=== PATIENT | female | born 1935 | race Caucasian/White ===

== ENCOUNTER 2016-08-22 00:31 | Inpatient (IN) | payer MEDICARE, OTHER ==
[~2016-08-22] VITALS: Ht 165.1 cm; Wt 107.8 kg
[2016-08-22] VITALS (18 sets, daily range): BP systolic 103–161; BP diastolic 63–104; PULSE 57–118; RESP 14–18; O2SAT 92–100
[~2016-08-22 00:31] MED LIST: BUPR150T12 PO; CHOL10008 PO; COLE1TAB PO; FURO40TA4 PO; MAGN400T23 PO; METO50TA3 PO; OMEP20CA11 PO; POTA10TA7 PO; RIVA20TA PO; SERT50TA9 PO; TELM80TA PO; VERA240C PO
[2016-08-22] MEDS ORDERED: FLUT1BLS IH (03:47)
[2016-08-22] MEDS ORDERED: UMEC62.5 IH (03:47)
[2016-08-22] MEDS ORDERED: Polyethylene Glycol (PEG) 17 Gm Powder PO PRN (03:55)
[2016-08-22] MEDS ORDERED: Alum-Mag Hydrox-Simeth 30 mL Suspension PO PRN (03:55)
[2016-08-22] MEDS ORDERED: Ondansetron 2 mg/mL 2 mL Inj IVPUSH PRN (03:55)
[2016-08-22] MEDS ORDERED: Pantoprazole Inj 80 MG, Pharmacy To Mix 1 EA in 0.9% Sodium Chloride 80 ML IV SCH ×2 (04:00)
--- NOTE | 2016-08-22 04:48 | PCM.HPMED ---
Subjective Date of Service Aug 22, 2016 Primary Provider: Admitting Physician: Claudia Simms DO Primary Care Physician: Claudia Bowen PA-C Attending Physician: Claudia Simms DO Admit Status: Direct Admit (from [facility]) Chief Complaint: Generalized weakness, dizziness, shortness of breath worsened by exertion for the past week History of Present Illness: This is a pleasant 80-year-old female with past history of paroxysmal atrial fibrillation on antiplatelet therapy Xarelto, as well as history of BIMAL, CHF, COPD, and GERD who presented to [facility] secondary to having developed generalized weakness, dizziness/lightheadedness and shortness of breath over the past week that worsened today prompting patient to call 911. At [facility] ED patient was found to be in A. fib, with a critically low H/ H. Associated symptoms include nausea, dark tarry stools for the past week. Patient denies any prior history of blood in stool to her knowledge, denies NSAID use, 2 IVs were placed and patient was started on Protonix drip, and patient received a single unit of packed RBCs. Dr. Lombardo was consulted by phone who will be seeing patient for endoscopy secondary to GI bleed. Patient was transferred to [facility] secondary to lack of procedural space ( operating room under construction) at [facility]. At [facility] patient reported feeling improved after having received her 1 unit of packed red blood cells. And states that her shortness of breath is much improved. Patient denied chest pain, fever, vomiting, abdominal pain, constipation, cough, syncope, falls. In the ED at [facility]: Vital signs were temperature 36.3, heart rate 73, respiratory rate 16-19, blood pressure 97/66, 99% on room air Hemogram: Significant for white blood cell count 11.8, hemoglobin 6.4, hematocrit 20.7, MCV 75.7, MCH 23.6, MCHC 31.1, platelet count 272 nucleated RBCs 0.2, absolute nucleated RBCs 0.02 and platelet count 272 Chemistry panel: Sodium low at 133, potassium elevated 5.2, chloride 102, BUN 32 , creatinine 0.9, glucose 126, troponin I less than 0.04 Normal anion gap 8.0 BNP was elevated at 246 Blood Type A+ antibody screen negative UA was negative EKG: Rate of 61, rhythm is atrial fibrillation, axis anterior hemiblock, right bundle branch block, rate has decreased from previous EKG on 04/10/2015 otherwise no changes. Chest x-ray moderate cardiomegaly, chronic lung disease Review of Systems: A comprehensive review of systems was conducted and was negative except as mentioned in history of present illness. Allergies Coded Allergies: No Known Allergies (Unverified , 09/13/15) Home Medications Bupropion HCl 150 mg by mouth daily Telmisartan [Micardis) Verapamil HCl ER 240 mg by mouth daily Vitamin D3 1mg by mouth daily Colestipol 1 g daily Ellipta 1 g inhaled daily Fluticasone/Vilanterol 1 mg inhaled daily Furosemide 80 mg daily Magnesium oxide 400 mg daily Metoprolol tartrate Omeprazole Potassium chloride Xarelto Sertraline PMH Paroxysmal atrial fibrillation, currently on antiplatelet therapies Xarelto Hypertension COPD CHF Obstructive sleep apnea, and has her own home CPAP mask with her Depression anxiety Chronic diarrhea GERD Diverticulitis Surgical History Cholecystectomy Partial colectomy secondary to perforated diverticulitis, with colostomy and then reversal Abdominal hernia repair Partial vaginal hysterectomy Family History Maternal uncle with leukemia and history of melanoma Social History Hx Alcohol Use: No Hx Substance Use: No Smoking Status: Former Smoker Living Arrangement: with Family (patient lives in a duplex next to her daughter.) Exam Vital Signs Vital Sign - Last Date Time Temp Pulse Resp B/P Pulse Ox O2 Delivery O2 Flow Rate FiO2 08/22/16 03:15 21 08/22/16 03:07 94 Exam General: Patient is alert and oriented, resting comfortably in bed, wearing a CPAP mask, in no acute distress, speaking in full sentences, patient states she feels less short of breath after having received her blood transfusion. HEENT: NC/AT, eyes Anisocoria with right smaller than left pupil, pupils reactive to light bilaterally, pupils accommodate, EOMI, pale conjunctiva, neck soft, supple, no adenopathy, no JVD, no masses, no thyromegaly, throat mucous membranes pink and moist, edentulous, no erythema, no exudates, no tonsillar swelling, no uvular deviation. Nose rhinophyma Lungs: CTAB all [place], no wheezes, no rhonchi, no crackles, no adventitious lung sounds, no use of accessory muscles of respiration, good air movement, good respiratory effort. Heart: Regular rate, rhythm is irregularly irregular, no murmur, no rub, no click, no distant heart sounds, Abdomen: Obesity, abdomen is soft, nontender, nondistended, bowel sounds active , no rebound, no guarding, well-healed old surgical scars prominent in the midline Genitourinary: No CVA tenderness, no suprapubic tenderness, Casas catheter draining light-colored suly urine, Extremities: Muscle strength, 5 out of 5 upper/lower extremity and symmetric laterally, reflexes 2 out of 4 upper/lower extremity and symmetric bilaterally, pulses equal and symmetric upper/lower extremity including radial and dorsalis pedis, 2+ pitting edema bilaterally of the lower extremities with extension to just above the ankle. Neurologic: Grossly neurologically intact, speaking in full sentences, no focal neurological signs Skin: Skin is cool and dry, capillary refill is greater than 3 seconds, skin on lower extremity appears scaly and dry, moderate degree of venous stasis and lower extremity edema bilaterally. Patient has IV line in each upper extremity arm. Psychiatric: Mood is cheerful and mood and affect are congruent and appropriate. Lab and Diagnostics X-Rays, CTs and MRIs Chest x-ray done at [facility] Lungs/pleura: no focal opacities evident. No pleural effusion. No pneumothorax. Overexpanded. No vascular congestion. Mediastinum: Stable moderate cardiomegaly. No adenopathy. Impression: 1. Moderate cardiomegaly. 2. Chronic lung disease. Read by radiologist Mandy Mac M.D. 12-lead ECG EKG done at [facility] Rate of 61, rhythm is atrial fibrillation, axis anterior hemiblock, right bundle branch block, rate has decreased from previous EKG on 04/10/2015 otherwise no changes. Assessment & Plan This is a pleasant 80-year-old female with history of paroxysmal A. fib on antiplatelet therapy Xarelto who presented to [facility] complaining of one-week history of generalized weakness, dyspnea, dizziness/ lightheadedness, and shortness of breath with associated dark tarry stools. Patient received 1 unit packed RBCs for a critical H&H, placed on a Protonix drip, and transferred to his [facility] for GI endoscopy. Acute blood loss anemia, POA secondary to GI bleed treatment as below # Microcytic hypochromic anemia, chronicity unknown, present on admit, active, hemodynamically stable EKG: Rate of 61, rhythm is atrial fibrillation, axis anterior hemiblock, right bundle branch block, rate has decreased from previous EKG on 04/10/2015 otherwise no changes. -Hemogram done at [facility] showed H/H of 6.4/20.7, MCV 75.7, MCH 23.6, MCHC 31.1, RDW 15.8, platelet count was 272 -Patient received 1 unit of packed RBCs at [facility] prior to transfer to [facility] -Patient denies any prior history of blood transfusions -Likely secondary to acute versus chronic blood loss from GI bleed. -We will continue to monitor hemoglobin and hematocrit -CBC him a PT/INR/PTT ordered and pending -Type and crossmatch 2 units of packed RBCs, will hold transfusion for now -We will plan to transfuse if hemoglobin less than 8 # Acute versus chronic GI bleed, present on admission, active, hemodynamically stable -Patient reports that she is felt dizzy, short of breath, with associated generalized weakness for the past week. She describes recent history of of dark bloody tarry stools over the past week. Patient denies any previous history of GI bleed or blood in her stool. -She states that she feels improvement after having received 1 unit packed RBCs. -CBC, CMP, PT/INR/PTT, ordered and pending -Dr. Fernández gastroenterology has been consulted via phone by [facility] and is aware of patient. -Patient currently nothing by mouth for endoscopy procedure -Continue IV Protonix drip -Stool guaiac -IV fluids at 100 mL per hour normal saline -GI consult in the morning # Hyperglycemia, present on admission, active -Glucose 126 -We will continue to monitor # Hyponatremia, present on admission, active -Patient had sodium of 133 at [facility] -IV fluids normal saline maintenance rate 100 mL per hour -Patient has good kidney function with creatinine 0.9 # Hyperkalemia, present on admission, active -Potassium 5.2 at [facility] -We will monitor this for now -Repeat CMP ordered and pending -We will correct appropriately # Casas catheter -Draining light suly colored urine Chronic problems: Paroxysmal A. fib, EKG: Rate of 61, rhythm is atrial fibrillation, axis anterior hemiblock, right bundle branch block, rate has decreased from previous EKG on 04/10/2015 otherwise no changes. -Patient takes Xarelto -We will hold medications Xarelto -Patient is rate controlled on metoprolol, will continue home medication metoprolol Hypertension -Continue home medication verapamil 240 mg daily -Continue home medication Furosemide 80 mg by mouth daily, creatinine 0.9 -Continue medication telmisartan COPD CHF -We will review records for patient's last echo cardiogram -Currently has bilateral lower extremity edema with 2+ pitting to the level of just proximal to the ankles. -Continue home medication Furosemide 80 mg by mouth daily, creatinine 0.9 GERD -Patient is currently on Protonix drip, and so so will hold all medication omeprazole Obstructive sleep apnea, patient has home CPAP mask Chronic diarrhea -Continue home medication colestipol Depression anxiety Continue home medication sertraline Continue home medication bupropion Disposition: Admitted to in patient service with expected length of stay greater than 2 days, secondary to severity of presenting symptoms, treatment plan, complexity of clinical work up, and risk of adverse events. CODE STATUS: Full code PCP: DVT PE prophylaxis: SCD's Contact: Pain Evaluation: Adequate Pain Control VTE Prophylaxis: SCDs Resuscitation Status: CPR: Attempt Resuscitation Attending Statement The patient was seen and examined together with house staff on 08/22/2016 and I agree with the history, exam and plan as outlined in the note above. Luis M De Jesus DO Aug 22, 2016 04:48 Claudia Simms DO Aug 22, 2016 07:12
[2016-08-22] MEDS: 0.9% Sodium Chloride 1,000 ML IV SCH ×3 (05:09→21:13)
[2016-08-22 05:30] LABS: BASOPHILS % (AUTO) 0.1 % (0-3); EOSINOPHILS % (AUTO) 1.4 % (0-5); MONOCYTES % (AUTO) 10.3 % (4-12); Mean Corpuscular Hemoglobin 24.4 pg (27.0-35.0); Mean Corpuscular Volume 77.6 fL (81-100); NEUTROPHILS % (AUTO) 70.3 % (40-74)
[2016-08-22 06:11] LABS: INR 1.01 ratio
[2016-08-22] MEDS: Pantoprazole Inj 80 MG in 0.9% Sodium Chloride 80 ML IV SCH ×2 (06:12→15:15)
[2016-08-22] MEDS: Potassium Chloride 20 mEq SR Tablet PO SCH (08:30)
[2016-08-22] MEDS ORDERED: Propofol 10,000 mCg/mL 20 mL Inj ONE (09:16)
--- NOTE | 2016-08-22 10:07 | PCM.PNMED ---
Subjective Date of Service Aug 22, 2016 Subjective Patient is currently receiving second unit of blood (first one received at [facility]). She states she feels better. Denies dizziness, lightheadedness , chest pain, shortness of breath (wearing home CPAP mask). Exam Vital Signs Vital Sign - Last Date Time Temp Pulse Resp B/P Pulse Ox O2 Delivery O2 Flow Rate FiO2 08/22/16 09:20 36.7 101 16 108/63 08/22/16 08:27 CPAP/BIPAP 08/22/16 03:15 21 Intake and Output 08/21/16 08/21/16 08/22/16 Cumulative From/Thru 15:00 23:00 07:00 08/22/16 06:00 - 08/22/16 06:20 Intake Total 111 ml 111 ml Output Total 800 ml 800 ml Balance -689 ml -689 ml Intake Oral 0 ml 0 ml IV Total 111 ml 111 ml Output Urine Total 800 ml 800 ml Exam General: Patient is alert and oriented, resting comfortably in bed, wearing a CPAP mask HEENT: NC/AT, pale conjunctiva, neck soft, supple, throat mucous membranes pink and moist Lungs: CTAB all [place], no wheezes, no rhonchi, no crackles Heart: Regular rate, rhythm is irregularly irregular, no murmurs appreciated Abdomen: Obesity, abdomen is soft, nontender, nondistended Genitourinary: Casas catheter draining light-colored suly urine Extremities: 2+ pitting edema bilaterally of the lower extremities with extension to just above the ankle Lab and Diagnostics Result Diagram: 08/22/16 0900 08/22/16 0515 X-Rays, CTs and MRIs Chest x-ray done at [facility] Lungs/pleura: no focal opacities evident. No pleural effusion. No pneumothorax. Overexpanded. No vascular congestion. Mediastinum: Stable moderate cardiomegaly. No adenopathy. Impression: 1. Moderate cardiomegaly. 2. Chronic lung disease. Read by radiologist Mandy Mac M.D. 12-lead ECG EKG done at [facility] Rate of 61, rhythm is atrial fibrillation, axis anterior hemiblock, right bundle branch block, rate has decreased from previous EKG on 04/10/2015 otherwise no changes. Assessment & Plan This is a pleasant 80-year-old female with history of paroxysmal A. fib on antiplatelet therapy Xarelto who presented to [facility] complaining of one-week history of generalized weakness, dyspnea, dizziness/ lightheadedness, and shortness of breath with associated dark tarry stools. Patient received 1 unit packed RBCs for a critical H&H, placed on a Protonix drip, and transferred to his [facility] for GI endoscopy. Hospital day 1. 1. Microcytic hypochromic anemia, chronicity unknown, present on admit, active, hemodynamically stable EKG: Rate of 61, rhythm is atrial fibrillation, axis anterior hemiblock, right bundle branch block, rate has decreased from previous EKG on 04/10/2015 otherwise no changes. -Hemogram done at [facility] showed Hb/Hct of 6.4/20.7, MCV 75.7, MCH 23.6, MCHC 31.1, RDW 15.8, platelet count was 272 -Patient received 1 unit of packed RBCs at [facility] prior to transfer to [facility] -Patient denies any prior history of blood transfusions -Likely secondary to acute versus chronic blood loss from GI bleed -We will continue to monitor hemoglobin and hematocrit -Current Hb/Hct 6.7 (7.3)/21.2 (23.2), PT 10.8, INR 1.01 -Type and crossmatch 2 units of packed RBCs,currently being transfused -GI, Dr. Fernández plans to do upper endoscopy this afternoon 2. Acute versus chronic GI bleed, present on admission, active, hemodynamically stable -Patient reports that she is felt dizzy, short of breath, with associated generalized weakness for the past week. She describes recent history of of dark bloody tarry stools over the past week. Patient denies any previous history of GI bleed or blood in her stool. -She states that she feels improvement after having received 1 unit packed RBCs. -Dr. Fernández gastroenterology has been consulted. Plan is to perform upper endoscopy today. -Continue IV Protonix drip -Stool guaiac pending 3. Hyponatremia, present on admission, resolved -Patient had sodium of 133 at [facility], 137 this morning -IV fluids normal saline maintenance rate 100 mL per hour before/after blood transfusion (monitor for fluid overload as patient has h/o CHF) -Patient has good kidney function with creatinine 0.9 (1.03 currently) 5. Hyperkalemia, present on admission, resolved -Potassium 5.2 at [facility], 4.0 this morning -Repeat CMP ordered and pending Chronic problems: Paroxysmal A. fib, EKG: Rate of 61, rhythm is atrial fibrillation, axis anterior hemiblock, right bundle branch block, rate has decreased from previous EKG on 04/10/2015 otherwise no changes. -Patient takes Xarelto -We will hold medications Xarelto -Patient is rate controlled on metoprolol, will continue home medication metoprolol Hypertension -Continue home medication verapamil 240 mg daily -Continue home medication Furosemide 80 mg by mouth daily, creatinine 0.9 -Continue medication telmisartan COPD CHF -We will review records for patient's last echo cardiogram -Currently has bilateral lower extremity edema with 2+ pitting to the level of just proximal to the ankles. -Continue home medication Furosemide 80 mg by mouth daily, creatinine 0.9 GERD -Patient is currently on Protonix drip, and so so will hold all medication omeprazole Obstructive sleep apnea, patient has home CPAP mask Chronic diarrhea -Continue home medication colestipol Depression anxiety Continue home medication sertraline Continue home medication bupropion Disposition: Admitted to in patient service with expected length of stay greater than 2 days, secondary to severity of presenting symptoms, treatment plan, complexity of clinical work up, and risk of adverse events. CODE STATUS: Full code PCP: DVT PE prophylaxis: SCD's Contact: Pain Evaluation: Adequate Pain Control VTE Prophylaxis: SCDs VTE Mechanical Devices: Intermittant Pneumatic CD Resuscitation Status: CPR: Attempt Resuscitation Attending Statement The patient was seen and examined together with Dr. Brewer on 08/23/2016 and I agree with the history, exam and plan as outlined in the note above. . Nakia Brewer DO Aug 22, 2016 10:07 Marty De Souza MD Aug 25, 2016 17:05
--- NOTE | 2016-08-22 11:12 | PCM.CHPMED ---
Subjective Date of Service: Aug 22, 2016 Primary Physician: Admitting Physician: Claudia Simms DO Primary Care Physician: Claudia Bowen PA-C Attending Physician: Caludia Simms DO Admit Status: Direct Admit, [facility] Telemetry Chief Complaint: Chief Complaint: Generalized weakness, dizziness, and exertional SOB History of Present Illness: Catherine Flores is a 80-year-old female with past history of paroxysmal atrial fibrillation on antiplatelet therapy Xarelto, as well as history of BIMAL, CHF, COPD, and GERD who presented to [facility] for worsening generalized weakness, dizziness/lightheadedness, and shortness of breath over the past week. was transferred to [facility] secondary to lack of procedural space. Patient also reports intermittent nausea and dark, tarry stool for the last 3-5 days. She denies any similar symptoms or history of anemia in the past. She also denies CP, abdominal pain, vomiting, constipation, diarrhea, heartburn, or fever/chills. She states that her GERD is well controlled with Prilosec 1 tab daily. No frequent NSAIDs use or history of H. pylori infection. Her last colonoscopy was about 2 years ago and it was normal. Patient never has an upper endoscopy before. At [facility], patient was found to be in A. fib, with a critically low H/ H of 6.4/20.7. Patient was started on Protonix drip and received a single unit of packed RBCs. By the time she arrived at [facility], her hemoglobin improved to 7.3 and patient also reported improvement of symptoms. No blood transfusion overnight with 2 units of PRBC were typed and hold. This morning, her hemoglobin dropped to 6.7, so blood transfusion was initiated. GI team was consulted by phone for anemia likely secondary to GI bleed and endoscopy. Review of Systems: A comprehensive review of systems was conducted and was negative except as mentioned in history of present illness. H Past Medical History Paroxysmal atrial fibrillation, currently on antiplatelet therapies Xarelto Hypertension COPD CHF Obstructive sleep apnea, and has her own home CPAP mask with her Depression anxiety Chronic diarrhea GERD Diverticulitis Surgical History Cholecystectomy Partial colectomy secondary to perforated diverticulitis, with colostomy and then reversal Abdominal hernia repair Partial vaginal hysterectomy Home Medications Bupropion HCl 150 mg by mouth daily Telmisartan [Micardis) Verapamil HCl ER 240 mg by mouth daily Vitamin D3 1mg by mouth daily Colestipol 1 g daily Ellipta 1 g inhaled daily Fluticasone/Vilanterol 1 mg inhaled daily Furosemide 80 mg daily Magnesium oxide 400 mg daily Metoprolol tartrate Omeprazole Potassium chloride Xarelto Sertraline Allergies: Coded Allergies: No Known Allergies (Unverified , 09/13/15) Family History Family History Patient denies family history of GI issues. Maternal uncle with leukemia and history of melanoma Social History Hx Alcohol Use: NoHx Substance Use: NoHx Tobacco Use: Yes Smoking Status: Former Smoker (light smoker, quit in 1998) Living Arrangement: with Family (patient lives in a duplex next to her daughter.) Exam Vital Signs Vital Sign - Last Date Time Temp Pulse Resp B/P Pulse Ox O2 Delivery O2 Flow Rate FiO2 08/22/16 10:59 105 08/22/16 09:20 36.7 16 108/63 08/22/16 08:27 CPAP/BIPAP 08/22/16 03:15 21 Intake and Output 08/21/16 08/21/16 08/22/16 Cumulative From/Thru 15:00 23:00 07:00 08/22/16 06:00 - 08/22/16 06:20 Intake Total 111 ml 111 ml Output Total 800 ml 800 ml Balance -689 ml -689 ml Intake Oral 0 ml 0 ml IV Total 111 ml 111 ml Output Urine Total 800 ml 800 ml Additional Information: General: Patient is alert and oriented, resting comfortably in bed, wearing a CPAP mask, in no acute distress, speaking in full sentences HEENT: NC/AT, PERRLA, EOMI, pale conjunctiva, mucosa membrane dry. Neck: soft, supple, no adenopathy, no JVD, no masses, no thyromegaly. Lungs: CTAB all [place], no wheezes, no rhonchi, no crackles, no adventitious lung sounds, no use of accessory muscles of respiration, good air movement, good respiratory effort. Heart: Regular rate, rhythm is irregularly, no murmur, no rub, no click. Abdomen: Obesity, abdomen is soft, nontender, nondistended, bowel sounds active , no rebound, no guarding, well-healed old surgical scars prominent in the midline. Genitourinary: No CVA tenderness, no suprapubic tenderness. Extremities: Muscle strength, radial and dorsalis pedis pulses equal and symmetric, trace pitting edema bilaterally of the lower extremities. Neurologic: Grossly neurologically intact, speaking in full sentences, no focal neurological signs Skin: Skin is cool and dry, moderate degree of venous stasis and lower extremity edema bilaterally. Psychiatric: Mood and affect are congruent and appropriate. Lab and Diagnostics Result Diagram: 08/22/16 0900 08/22/16 0515 X-Rays, CTs and MRIs Chest x-ray moderate cardiomegaly, chronic lung disease 12-lead ECG EKG: Rate of 61, rhythm is atrial fibrillation, axis anterior hemiblock, right bundle branch block, rate has decreased from previous EKG on 04/10/2015 otherwise no changes. Assessment & Plan Assessment 80-year-old female with history of paroxysmal A. fib on antiplatelet therapy Xarelto who presented to [facility] complaining of one-week history of generalized weakness, dyspnea, dizziness/lightheadedness, and shortness of breath with associated dark tarry stools. Patient received 1 unit packed RBCs for a critical H&H, placed on a Protonix drip, and transferred to [facility] for GI endoscopy. 1.Microcytic hypochromic anemia, chronicity unknown, present on admission, active. - Hemoglobin at [facility] was 6.4, improved to 7.3 after 1 unit of PRBC, then dropped to 6.7 this morning. - Patient is on her 2nd unit of PRBC for a total of 3 units. - Ideally, we would like to do an Iron study on the blood draw at [facility] before the transfusion. - EGD was discussed with the patient along with the potential risks. Patient wished to proceed. - Depending on our findings and the patient's clinical course, further evaluation such as colonoscopy or RBC nuclear scan might be indicated. - Hold Xarelto. Her renal function is not bad and the Xarelto should be cleared after 11-13 hours. - Keep NPO for procedure - Continue PPI drip - Monitor serial H/H q6h Other medical problems will be managed by the medical team. Thank you for the consultation. GI will continue to follow along with you. Problems: Pain Evaluation: Adequate Pain Control VTE Prophylaxis: SCDs VTE Mechanical Devices: Intermittant Pneumatic CD Resuscitation Status: CPR: Attempt Resuscitation Attending Statement Patient seen and examined. Agree with assessment and plan as described by Dr Hill. Trent Hill DO Aug 22, 2016 11:12 Anish Fernández MD Aug 22, 2016 22:42
[2016-08-22] MEDS: 0.9% Sodium Chloride 250 ML IV SCH ×2 (11:20→12:18)
[2016-08-22] MEDS: Verapamil SR 240 mg ER12 Tablet PO SCH (12:19)
--- NOTE | 2016-08-22 15:42 | NUR ---
Social Work Note: Initial Assessment Data& Assessment: EMR reviewed. SW met with pt at bedside to discuss discharge planning, SW role explained. Catherine Flores is a 80 year old female admitted on 08/22/2016 for GI Bleed. Pt has Medicare and [employer] insurance coverage. Pt sees Stevenson Cain for primary care. Pt lives in [place] in a [place] that she shares with her daughter. The home is two story home but she remains on the first floor. Pt uses a walker at home and a cane when she leaves the home. Pt drives. Pt does not have HH or SNF hx. Pt does not have LTC insurance. Pt does not have [facility] service connection. Pt takes Zeralto and has been for the last year. Pt confirms she thinks the medication is working well for her as she has not had a period of depression in the last year. Pt has a living will at home, SW requested a copy for her chart when possible. Pt family to transport her home when medically ready. Pt denies any needs at this time. SW to continue to follow if any needs arise. Plan: Anticipated discharge home via POV when medically ready. Pt denies any needs at this time. SW to continue to follow if any needs arise. HANNAH Chicas Addendum: 08/22/16 at 1547 by MIS SNOW Amended: Links added.
--- NOTE | 2016-08-22 17:08 | NUR ---
PRBC's Patient a/o x 3, denies pain, nausea or sob. Patient npo since midnight. Recieved 2 units PRBC's robert well. VSS, tele A fib PVC's. Patient oob x 1 sat in chair for approx 15 min. Casas patent yellow uop. No BM this shift. No S/S of bleeding this shift.
--- NOTE | 2016-08-22 17:53 | NUR ---
Endo Patient npo since midnight. Down to Endoscopy at 1730
[2016-08-22] MEDS: Lactated Ringer's 1,000 ML IV SCH (18:13)
--- NOTE | 2016-08-22 18:15 | PCM.HPANE ---
Patient Data Surgeon Admitting Provider:Claudia Simms DO Attending Provider:Claudia Simms DO Primary Care Physician:Claudia Bowen PA-C Other Provider: Reason for Visit Gi Bleed Ht/WT & BMI Height (Feet): 5 Height (Inches): 5 Weight (Kilograms): 107.95 Body Mass Index 39.00 Allergies Coded Allergies: No Known Allergies (Unverified , 09/13/15) Past Anesthesia History Anesthesia History: Denies:: Abnormal Airway, Anesthesia Reactions, Difficult Intubation, Fam Anesthesia Reaction, Fam Malignant Hypertherm, Malignant Hyperthermia Diabetes History Hx Diabetes?: No MRSA MRSA: No Medications Blood Thinner: Xarelto Last Dose Blood Thinner: Aug 20, 2016 Home Meds Incl Beta Paige: Yes Date Beta Paige Taken: Aug 21, 2016 Time Beta Paige Taken: 0900 Reported Medications Fluticasone/Vilanterol (Breo Ellipta 200-25 Mcg INH)200 Mcg-25 Mcg/Dose Blst.w.dev1 Each IH DAILY 08/22/16 Umeclidinium [place] (Incruse Ellipta)62.5 Mcg/Actuation Blst.w.dev62.5 Mcg IH DAILY 08/22/16 Rivaroxaban (Xarelto)20 Mg Zwuwzi70 Mg PO DAILYWD 09/10/15 Cholecalciferol (Vitamin D3) (Vitamin D3)1,000 Unit Tab.chew1,000 Unit PO DAILY 09/10/15 Verapamil ER 240 Mg Cap24h.omy096 Mg PO DAILY Ref 0 09/10/15 Sertraline HCl (Sertraline)50 Mg Mpwgei70 Mg PO DAILY 30 Days Ref 0 09/10/15 Omeprazole 20 Mg Capsule.dr20 Mg PO DAILY Ref 0 09/10/15 Telmisartan (Micardis)80 Mg Myxfrv80 Mg PO DAILY 09/10/15 Metoprolol Tartrate 50 Mg Sydddg15 Mg PO BID 30 Days Ref 0 09/10/15 Magnesium Oxide (Mag-Oxide)400 Mg Xdiqqe584 Mg PO BID 09/10/15 Potassium Chloride ER (Klor-Con 10)10 Meq Ohzito35 Meq PO QPM Ref 0 09/10/15 Potassium Chloride ER (Klor-Con 10)10 Meq Lctgys02 Meq PO MORNING Ref 0 09/10/15 Furosemide 40 Mg Ftuuld97 Mg PO DAILY 09/10/15 Colestipol HCl (Colestid)1 Gm Tablet2 Tab PO DAILY 30 Days 09/10/15 Bupropion ER 150 Mg Tablet.er150 Mg PO DAILY Ref 0 09/10/15 Discontinued Reported Medications Metoprolol Tartrate 50 Mg Yueekw40 Mg PO NOON 30 Days Ref 0 09/10/15 History History of ENT Problems?: No HEENT History: Positive for:: Hearing Problem (MILD) Denies:: Abnormal Airway Difficult Intubation Dysphagia Denture Type: Full- Upper Full- Lower Other HEENT Pertinent History: DENTURE IN PT ROOM ON FLOOR Hx of Heart Problems?: Yes Cardiovascular History: Positive for:: Atrial Fibrillation Congestive Heart Failure (Cardiomyopathy) Edema Hypertension Irregular Heartbeat Denies:: AICD Cardiac Surgery Chest Pain Heart Murmur Pacemaker Thrombophlebitis Valvular Heart Disease Hx of Respiratory Problem?: Yes Respiratory History: Positive for:: Asthma Denies:: COPD Chest Surgery Cough Dyspnea Hemoptysis Pneumonia Tuberculosis Other Resp Pertinent History: Hx Neurologic Problems?: No Neurological History: Denies:: CVA Gastrointestinal History: Positive for:: Diverticulitis Gall Bladder Disease (REMOVED) Gastroesphageal Reflux Gastrointestinal Bleeding (this visit) Heartburn Rectal Bleeding (DARK STOOL) Denies:: Cirrhosis Hepatitis Hiatal Hernia Liver Disease Hx of Problems?: No Female Hx: Denies:: Currently Hx Musculoskeletal Problems?: No Musculoskeletal History: Positive for:: Back Injury Denies:: Fibromyalgia Joint Replacement Hx of Psycho/Social Problems?: Yes Psycho Social History: Positive for:: Hx Depression Denies:: Anxiety Bipolar Disorder Suicide Attempt Hx Surgeries?: Yes (hysterectomy, perferated bowel, ingrid) Hx Any Other Health Problems?: Yes Other History: Denies:: Cancer Hospitalization Thyroid Disease History Blood Transfusions: Positive for:: Accept Blood Products? Blood Transfusions Denies:: Blood Transfuse Reaction Hx Diabetes: No Hx Alcohol Use: NoHx Substance Use: No Smoking Status: Former Smoker Have You Smoked inLast 12 mo: No Stop/Bang Treated for Sleep Apnea?: Yes Do You Have a CPAP Machine?: Yes (COMPLIANT W/ NIGHTLY USE) Risk Assessment Category Category 1A: Patient has history of documented sleep apnea, and HAS NOT received any narcotic, sedative or anesthesia administration during this stay. Category 1B: Patient has history of documented sleep apnea, and HAS received any narcotic , sedative or anesthesia administration during this stay Category 2: Patient has SUSPECTED Obstructive Sleep Apnea, and HAS received any narcotic , sedative or anesthesia administration during this stay. Category 3: Patient has SUSPECTED Obstructive Sleep Apnea and HAS NOT received narcotic, sedative or anesthesia administration during this stay. Category 4: Outpatient in Procedural Areas with known sleep apnea or who screen positive for High Risk via the STOP/BANG questionnaire. Exam Exam Vital Signs Vital Signs Date Time Temp Pulse Resp B/P Pulse Ox O2 Delivery O2 Flow Rate FiO2 08/22/16 17:44 97 18 155/104 100 Room Air 08/22/16 17:08 36.8 91 16 139/87 99 Room Air 08/22/16 15:10 36.8 89 18 161/87 08/22/16 12:17 35.9 90 17 134/77 08/22/16 12:14 35.9 90 17 134/77 98 Room Air 08/22/16 11:59 37.1 118 18 103/64 08/22/16 10:59 105 General Appearance: Alert, Oriented X3, Cooperative, Mild Distress HEENT/AIRWAY: MP 2, Neck Movement (FROM, large neck circumference), Mouth Opening (3 FBMO, edentulous) Lungs: Diminished Heart: Other (irreg irreg) Meds/Labs/Diagnostics Admission Meds Current Medications Sodium Chloride 1,000 ml @ 100 mls/hr Q10H IV Last administered on 08/22/16 05 :09; Start 08/22/16 at 03:51 Pantoprazole 80 mg/Sodium Chloride 100 ml @ 10 mls/hr Q10H IV Last administered on 08/22/16 06:12; Start 08/22/16 at 05:15 Sodium Chloride (Normal Saline) 250 ml @ 10 mls/hr Q24H IV Last administered on 08/22/16 12:18; Start 08/22/16 at 08:10 Labs Test 08/22/16 05:15 08/22/16 16:59 White Blood Count 8.6th/mm3 (3.8-10.1) Red Blood Count 2.99mil/mm3 (3.90-5.20) Mean Corpuscular Volume 77.6fL (81-100) Mean Corpuscular Hemoglobin 24.4pg (27.0-35.0) Mean Corpuscular Hemoglobin Concent 31.5% (32.0-37.0) Red Cell Distribution Width 16.3% (12.3-15.4) Platelet Count josselyn/L (150-400) Neutrophils (%) (Auto) 70.3% (40-74) Lymphocytes (%) (Auto) 17.8% (14-46) Monocytes (%) (Auto) 10.3% (4-12) Eosinophils (%) (Auto) 1.4% (0-5) Basophils (%) (Auto) 0.1% (0-3) Prothrombin Time 10.8sec (8.1-12.5) Prothromb Time International Ratio 1.01ratio Activated Partial Thromboplast Time 25.3sec (22.8-33.0) Sodium Level 137mEq/L (134-144) Potassium Level 4.0mEq/L (3.5-5.2) Chloride Level 99mEq/L (97-108) Carbon Dioxide Level 22mmol/L (18-29) Blood Urea Nitrogen 27mg/dL (8-27) Creatinine 1.03mg/dL (0.57-1.00) Estimat Glomerular Filtration Rate 74mL/min (>59) Glucose Level 97mg/dL (60-99) Calcium Level 9.4mg/dL (8.5-10.1) Total Bilirubin 0.6mg/dL (0.0-1.2) Aspartate Amino Transf (AST/SGOT) 12U/L (0-50) Alanine Aminotransferase (ALT/SGPT) 11U/L (0-32) Alkaline Phosphatase 79U/L (25-165) Total Protein 5.9g/dL (6.4-8.4) Albumin 3.6g/dL (3.4-5.0) Hemoglobin 8.7g/dL (12.0-15.6) Hematocrit 26.7% (35.0-46.0) Plan Impression Patient chart reviewed, patient interviewed and anesthestic plan with risks, benefits, and alternatives discussed, and informed consent obtained. NPO Status: > 8hrs ASA Physical Status: ASA3 Severe Disease (BMI 39, paroxysmal A fib) Anesthetic Plan: GA, MAC Bene/Risks/Altern/Consents: Yes HP Complete Prior to Induction: Yes Azam Lima MD Aug 22, 2016 18:15
--- NOTE | 2016-08-22 18:54 | PCM.ANEP2 ---
Post Anesthesia Evaluation ASA/CMS Post Anesthesia VS in Patient's Normal Range?: Yes Resp Stable; Airway Patent?: Yes CV Function & Hydration Stable: Yes Mental Status Recovered?: Yes Pain control Satisfactory?: Yes N/V Control Satisfactory?: Yes Azam Lima MD Aug 22, 2016 18:54
--- NOTE | 2016-08-22 18:54 | PCM.ANEP1 ---
Post Anesthesia Phase 1 PACU Phase 1 Assessment Date of Service: Aug 22, 2016 Vital Signs Vital Signs Date Time Temp Pulse Resp B/P Pulse Ox O2 Delivery O2 Flow Rate FiO2 08/22/16 18:43 104 16 121/72 100 Room Air 08/22/16 17:44 97 18 155/104 100 Room Air 08/22/16 17:08 36.8 91 16 139/87 99 Room Air 08/22/16 15:10 36.8 89 18 161/87 08/22/16 12:17 35.9 90 17 134/77 08/22/16 12:14 35.9 90 17 134/77 98 Room Air 08/22/16 11:59 37.1 118 18 103/64 08/22/16 10:59 105 Anesthetic Administered: GA, MAC Level of Alertness: Awake, talking VILLAFANA's with Equal Strength: Yes Pain: No Nausea or Vomiting: No Oxygen Delivery: Nasal Cannula Lungs: Diminished Dermatome Level: Full Sensation Azam Lima MD Aug 22, 2016 18:53
[2016-08-22] MEDS ORDERED: PEG/Electrolytes 4,000 mL Solution PO ONE (18:55)
--- NOTE | 2016-08-22 19:15 | NUR ---
Return to Room 2030 Pt returned back to room 2030 from ENDO during shift change at 1915 in stable condition.
--- NOTE | 2016-08-22 20:42 | ENDO ---
[address] [address] ENDOSCOPY PROCEDURE PATIENT: KYLE RODRIGUEZ : 1935 MR#: [id number] ADMIT: 08/22/2016 JOB ID: [id number] DATE: 08/22/2016 PRIMARY PROVIDER: Claudia Bowen PA-C. PROCEDURE: Esophagogastroduodenoscopy with biopsy. INDICATIONS: A 80-year-old female transferred over from [facility] for symptoms of melena that has been going on for the last week. She was significantly anemic and feels improved with blood transfusion. She has had a colonoscopy within the last couple of years. She has never had an upper endoscopy. She denies any nonsteroidal anti-inflammatories. Last dose of Xarelto was two evenings ago. EQUIPMENT: GIF H 180. SEDATION: Monitored anesthesia as provided by Dr. Azam Lima. COMPLICATIONS: None identified. PROCEDURE INFORMATION: After the risks and benefits were explained, written and verbal informed consent was obtained. The patient was brought into the endoscopy suite and placed into the left lateral decubitus position. Sedation was achieved as above. The scope introduced into the mouth through the bite block, and advanced to the second portion of the duodenum. The scope was slowly withdrawn to carefully examine the mucosa for any defects or lesions. Retroflexed views were accomplished in the stomach. The stomach was decompressed. The scope removed from the patient who tolerated the procedure reasonably well. FINDINGS: 1. Duodenum: No new or old blood throughout. The mucosa was essentially normal from the bulb through to the second portion. 2. Stomach: No outlet obstruction. No mucosal mass lesions. No ulcers. No sign of new or old blood. There was bile-stained gastric juice remaining in the lumen of the stomach. I did not see any stigmata of Dieulafoy's. No AVMs. There were several scattered diminutive polyps; one of these was removed with cold forceps for histopathologic analysis. In the mid body was a small perhaps 9-10 mm, slightly irregular in shape submucosal mass lesion. We pushed on this area with the forceps and it was quite soft. The overlying mucosa appeared consistent with the rest of the gastric surface area. 3. Esophagus: The squamocolumnar junction correlated with the top of the gastric folds. No acute erosive changes. No strictures. No mass lesions. The GEJ was at 42 cm from the incisors. No esophageal pathology appreciated. ENDOSCOPIC DIAGNOSES: 1. Diminutive gastric polyps. 2. Small gastric submucosal mass lesion, soft. 3. No sign of any active or recent upper gastrointestinal bleeding. RECOMMENDATIONS: 1. Await histopathology. 2. Endoscopic ultrasound examination would be appropriate for further evaluation of the submucosal lesion in the stomach. This should be done within the next few weeks ideally. 3. Clear liquid diet for now. 4. The patient will be offered a bowel prep for colonoscopy examination tomorrow afternoon. She can be n.p.o. after about 10:30 in the morning. We have ordered a split prep with half the prep this afternoon, half in the morning and then continued clear liquids until about 10:30. 5. Continue to hold the Xarelto.
[2016-08-23] VITALS (11 sets, daily range): BP systolic 118–164; BP diastolic 66–99; PULSE 58–118; RESP 14–22; O2SAT 96–100
[2016-08-23] MEDS: Pantoprazole Inj 80 MG in 0.9% Sodium Chloride 80 ML IV SCH ×3 (02:58→21:15)
[2016-08-23 03:49] LABS: BASOPHILS % (AUTO) 0.3 % (0-3); EOSINOPHILS % (AUTO) 2.1 % (0-5); MONOCYTES % (AUTO) 10.9 % (4-12); Mean Corpuscular Hemoglobin 24.9 pg (27.0-35.0); Mean Corpuscular Volume 79.2 fL (81-100); NEUTROPHILS % (AUTO) 73.1 % (40-74); Platelet Count 192 bil/L (150-400)
--- NOTE | 2016-08-23 04:05 | NUR ---
Bowel Prep: Pt finished the first half of the Go-Lytely prep at 2330. Last BM was noted to be a yellowish clear liquid. Will resume the last 2 liters at 0600. Pt currently sleeping. Addendum: 08/23/16 at 0557 by WERO JORDAN RN Addendum: Pt's heart rate noted to escalate up to the 130s with getting OOB to the [facility]. HR returned to the 90s to low 100s after settling back into bed.
--- NOTE | 2016-08-23 05:57 | NUR ---
2nd half of Bowel Prep: Pt awoken to start second half of Go-Lytely.
[2016-08-23] MEDS ORDERED: PEG/Electrolytes 4,000 mL Solution PO ONE (06:00)
[2016-08-23] MEDS: 0.9% Sodium Chloride 250 ML IV SCH ×2 (07:32→11:20)
[2016-08-23] MEDS: Potassium Chloride 20 mEq SR Tablet PO SCH (07:32)
[2016-08-23] MEDS: 0.9% Sodium Chloride 1,000 ML IV SCH ×2 (07:32→19:51)
[2016-08-23] MEDS: Verapamil SR 240 mg ER12 Tablet PO SCH (07:32)
--- NOTE | 2016-08-23 14:51 | PCM.PNMED ---
Subjective Date of Service Aug 23, 2016 Subjective Patient is doing well. She tolerated upper endoscopy yesterday well. currently She is on Go-Lytely bowel preparation for colonoscopy scheduled later this afternoon. Exam Vital Signs Vital Sign - Last Date Time Temp Pulse Resp B/P Pulse Ox O2 Delivery O2 Flow Rate FiO2 08/23/16 12:39 37.0 95 16 140/80 100 Room Air 08/22/16 03:15 21 Intake and Output 08/22/16 08/22/16 08/23/16 Cumulative From/Thru 15:00 23:00 07:00 08/22/16 06:00 - 08/23/16 05:52 Intake Total 375 ml 1357 ml 3101 ml 4944 ml Output Total 500 ml 1000 ml 2300 ml Balance 375 ml 857 ml 2101 ml 2644 ml Intake Oral 0 ml 2000 ml 2000 ml IV Total 75 ml 1032 ml 1101 ml 2319 ml Packed Cells 300 ml 325 ml 625 ml Output Urine Total 500 ml 400 ml 1700 ml Stool Total 600 ml 600 ml Exam General: Patient is alert and oriented, resting comfortably in bed HEENT: Normocephalic, atraumatic, pale conjunctiva, neck soft, supple, throat mucous membranes pink and moist Lungs: Clear to auscultation bilaterally, all [place], no wheezes, no rhonchi, no crackles Heart: Regular rate, rhythm is irregularly irregular, no murmurs appreciated Abdomen: Obesity, abdomen is soft, nontender, nondistended Genitourinary: Casas catheter draining light-colored suly urine Extremities: 2+ pitting edema bilaterally of the lower extremities with extension to just above the ankle Lab and Diagnostics Result Diagram: 08/23/16 0340 08/23/16 0340 X-Rays, CTs and MRIs Chest x-ray done at [facility] Lungs/pleura: no focal opacities evident. No pleural effusion. No pneumothorax. Overexpanded. No vascular congestion. Mediastinum: Stable moderate cardiomegaly. No adenopathy. Impression: 1. Moderate cardiomegaly. 2. Chronic lung disease. Read by radiologist Mandy Mac M.D. 12-lead ECG EKG done at [facility] Rate of 61, rhythm is atrial fibrillation, axis anterior hemiblock, right bundle branch block, rate has decreased from previous EKG on 04/10/2015 otherwise no changes. Additional Diagnostics Upper Endoscopy 1. Diminutive gastric polyps. 2. Small gastric submucosal mass lesion, soft. 3. No sign of any active or recent upper gastrointestinal bleeding. Signed and approved by Dr. Fernández Assessment & Plan This is a pleasant 80-year-old female with history of paroxysmal A. fib on antiplatelet therapy Xarelto who presented to [facility] complaining of one-week history of generalized weakness, dyspnea, dizziness/ lightheadedness, and shortness of breath with associated dark tarry stools. Patient received 1 unit packed RBCs for a critical H&H, placed on a Protonix drip, and transferred to his [facility] for GI endoscopy. Hospital day 2. 1. Microcytic hypochromic anemia, chronicity unknown, present on admit. Active, hemodynamically stable EKG: Rate of 61, rhythm is atrial fibrillation, axis anterior hemiblock, right bundle branch block, rate has decreased from previous EKG on 04/10/2015 otherwise no changes. -Hemogram done at [facility] showed Hb/Hct of 6.4/20.7, MCV 75.7, MCH 23.6, MCHC 31.1, RDW 15.8, platelet count was 272 -Patient received 1 unit of packed RBCs at [facility] prior to transfer to [facility] -Patient denies any prior history of blood transfusions -Likely secondary to acute versus chronic blood loss from gastrointestinal bleed -Improved hemoglobin and hematocrit status post 2 units of packed RBCs 2. Acute versus chronic GI bleed, present on admission. Active, hemodynamically stable -Patient reports that she is felt dizzy, short of breath, with associated generalized weakness for the past week. She describes recent history of of dark bloody tarry stools over the past week. Patient denies any previous history of gastrointestinal bleed or blood in her stool. -She states that she feels improvement after having received 1 unit packed RBCs. -Upper endoscopy performed by Dr. Fernández on 08/22/16 revealed gastric polyp ( biopsed), small gastric submucosal mass lesion, and no sign of any active or recent upper gastrointestinal bleeding. -Colonoscopy to be performed today -Continue IV Protonix drip 3. Hyponatremia, present on admission, resolved -Patient had sodium of 133 at [facility], within normal limits today -IV fluids normal saline maintenance rate 100 mL per hour before/after blood transfusion (monitor for fluid overload as patient has h/o CHF) -Patient has good kidney function with creatinine 0.79 5. Hyperkalemia, present on admission, resolved -Potassium [address] [facility], within normal limit today Chronic problems: Paroxysmal A. fib, EKG: Rate of 61, rhythm is atrial fibrillation, axis anterior hemiblock, right bundle branch block, rate has decreased from previous EKG on 04/10/2015 otherwise no changes. -Patient takes Xarelto -We will hold medications Xarelto -Patient is rate controlled on metoprolol, will continue home medication metoprolol Hypertension -Continue home medication verapamil 240 mg daily -Continue home medication Furosemide 80 mg by mouth daily, creatinine 0.9 -Continue medication telmisartan at 40 mg by mouth per day COPD CHF -We will review records for patient's last echo cardiogram -Currently has bilateral lower extremity edema with 2+ pitting to the level of just proximal to the ankles. -Continue home medication Furosemide 80 mg by mouth daily, creatinine 0.9 GERD -Patient is currently on Protonix drip, and so so will hold all medication omeprazole Obstructive sleep apnea, patient has home CPAP mask Chronic diarrhea -Continue home medication colestipol Depression anxiety Continue home medication sertraline Continue home medication bupropion Disposition: Admitted to in patient service with expected length of stay greater than 2 days, secondary to severity of presenting symptoms, treatment plan, complexity of clinical work up, and risk of adverse events. CODE STATUS: Full code PCP: DVT PE prophylaxis: SCD's Contact: VTE Prophylaxis: SCDs VTE Mechanical Devices: Intermittant Pneumatic CD Resuscitation Status: CPR: Attempt Resuscitation Attending Statement The patient was seen and examined together with Dr. Brewer on 08/23/2016 and I agree with the history, exam and plan as outlined in the note above. . Nakia Brewer DO Aug 23, 2016 14:38 Marty De Souza MD Aug 25, 2016 17:07
[2016-08-23] MEDS ORDERED: Propofol 10,000 mCg/mL 20 mL Inj ONE (15:19)
[2016-08-23] MEDS ORDERED: Lidocaine PF 1% 30 mL Inj ONE (15:19)
[2016-08-23] MEDS ORDERED: fentaNYL-PF 50 mCg/mL 2 mL Inj ONE ×2 (15:19→21:03)
--- NOTE | 2016-08-23 18:46 | NUR ---
Npo/Bowel prep/Nausea Patient a/o x 4, VILLAFANA. Patient finished golyetely prep this a.m. and npo at 1000. Patient denies chest pain or sob, but had episode of nausea this evening, Zofran given with good effect. VSS, tele A fib 100's. Casas patent clear light yellow uop. Patient remains npo waiting for colonoscopy this evening. Will cont poc.
[2016-08-23] MEDS: Lactated Ringer's 1,000 ML IV SCH (21:37)
--- NOTE | 2016-08-23 22:00 | NUR ---
Off unit Pt off unit for colonoscopy. Transported via stretcher. No concerns.
--- NOTE | 2016-08-23 22:32 | PCM.HPANE ---
Patient Data Surgeon Admitting Provider:Claudia Simms DO Attending Provider:Claudia Simms DO Primary Care Physician:Claudia Bowen PA-C Other Provider: Reason for Visit Gi Bleed Ht/WT & BMI Height (Feet): 5 Height (Inches): 5 Weight (Kilograms): 111.100 Body Mass Index 39.00 Allergies Coded Allergies: No Known Allergies (Unverified , 09/13/15) Past Anesthesia History Anesthesia History: Denies:: Abnormal Airway, Anesthesia Reactions, Difficult Intubation, Fam Anesthesia Reaction, Fam Malignant Hypertherm, Malignant Hyperthermia Diabetes History Hx Diabetes?: No MRSA MRSA: No Medications Blood Thinner: Xarelto Last Dose Blood Thinner: Aug 20, 2016 Home Meds Incl Beta Paige: Yes Date Beta Paige Taken: Aug 21, 2016 Time Beta Paige Taken: 0900 Previous Beta Paige Dose >24: Give Dose Perioperatively Reported Medications Fluticasone/Vilanterol (Breo Ellipta 200-25 Mcg INH)200 Mcg-25 Mcg/Dose Blst.w.dev1 Each IH DAILY 08/22/16 Umeclidinium [place] (Incruse Ellipta)62.5 Mcg/Actuation Blst.w.dev62.5 Mcg IH DAILY 08/22/16 Rivaroxaban (Xarelto)20 Mg Giurbv41 Mg PO DAILYWD 09/10/15 Cholecalciferol (Vitamin D3) (Vitamin D3)1,000 Unit Tab.chew1,000 Unit PO DAILY 09/10/15 Verapamil ER 240 Mg Cap24h.htf906 Mg PO DAILY Ref 0 09/10/15 Sertraline HCl (Sertraline)50 Mg Vyddax63 Mg PO DAILY 30 Days Ref 0 09/10/15 Omeprazole 20 Mg Capsule.dr20 Mg PO DAILY Ref 0 09/10/15 Telmisartan (Micardis)80 Mg Lzojuc68 Mg PO DAILY 09/10/15 Metoprolol Tartrate 50 Mg Ukvdmo73 Mg PO BID 30 Days Ref 0 09/10/15 Magnesium Oxide (Mag-Oxide)400 Mg Anmpya531 Mg PO BID 09/10/15 Potassium Chloride ER (Klor-Con 10)10 Meq Xmybtx47 Meq PO QPM Ref 0 09/10/15 Potassium Chloride ER (Klor-Con 10)10 Meq Myrvtg72 Meq PO MORNING Ref 0 09/10/15 Furosemide 40 Mg Skielu97 Mg PO DAILY 09/10/15 Colestipol HCl (Colestid)1 Gm Tablet2 Tab PO DAILY 30 Days 09/10/15 Bupropion ER 150 Mg Tablet.er150 Mg PO DAILY Ref 0 09/10/15 Discontinued Reported Medications Metoprolol Tartrate 50 Mg Wnspob98 Mg PO NOON 30 Days Ref 0 09/10/15 History History of ENT Problems?: No HEENT History: Positive for:: Hearing Problem (MILD) Denies:: Abnormal Airway Difficult Intubation Dysphagia Denture Type: Full- Upper Full- Lower Other HEENT Pertinent History: DENTURE IN PT ROOM ON FLOOR Hx of Heart Problems?: Yes Cardiovascular History: Positive for:: Atrial Fibrillation Congestive Heart Failure (Cardiomyopathy) Edema Hypertension Irregular Heartbeat Denies:: AICD Cardiac Surgery Chest Pain Heart Murmur Pacemaker Thrombophlebitis Valvular Heart Disease Hx of Respiratory Problem?: Yes Respiratory History: Positive for:: Asthma Denies:: COPD Chest Surgery Cough Dyspnea Hemoptysis Pneumonia Tuberculosis Other Resp Pertinent History: Hx Neurologic Problems?: No Neurological History: Denies:: CVA Gastrointestinal History: Positive for:: Diverticulitis Gall Bladder Disease (REMOVED) Gastroesphageal Reflux Gastrointestinal Bleeding (this visit) Heartburn Rectal Bleeding (DARK STOOL) Denies:: Cirrhosis Hepatitis Hiatal Hernia Liver Disease Hx of Problems?: No Female Hx: Denies:: Currently Hx Musculoskeletal Problems?: No Musculoskeletal History: Positive for:: Back Injury Denies:: Fibromyalgia Joint Replacement Hx of Psycho/Social Problems?: Yes Psycho Social History: Positive for:: Hx Depression Denies:: Anxiety Bipolar Disorder Suicide Attempt Hx Surgeries?: Yes (hysterectomy, perferated bowel, ingrid) Hx Any Other Health Problems?: Yes Other History: Denies:: Cancer Hospitalization Thyroid Disease History Blood Transfusions: Positive for:: Accept Blood Products? Blood Transfusions Denies:: Blood Transfuse Reaction Hx Diabetes: No Hx Alcohol Use: NoHx Substance Use: No Smoking Status: Former Smoker Have You Smoked inLast 12 mo: No Stop/Bang Treated for Sleep Apnea?: Yes Do You Have a CPAP Machine?: Yes (COMPLIANT W/ NIGHTLY USE) Risk Assessment Category Category 1A: Patient has history of documented sleep apnea, and HAS NOT received any narcotic, sedative or anesthesia administration during this stay. Category 1B: Patient has history of documented sleep apnea, and HAS received any narcotic , sedative or anesthesia administration during this stay Category 2: Patient has SUSPECTED Obstructive Sleep Apnea, and HAS received any narcotic , sedative or anesthesia administration during this stay. Category 3: Patient has SUSPECTED Obstructive Sleep Apnea and HAS NOT received narcotic, sedative or anesthesia administration during this stay. Category 4: Outpatient in Procedural Areas with known sleep apnea or who screen positive for High Risk via the STOP/BANG questionnaire. Exam Exam Vital Signs Vital Signs Date Time Temp Pulse Resp B/P Pulse Ox O2 Delivery O2 Flow Rate FiO2 08/23/16 19:50 CPAP/BIPAP 08/23/16 19:36 37.0 118 22 149/75 96 08/23/16 16:20 36.8 100 14 145/82 100 Room Air General Appearance: Alert, Oriented X3, Cooperative, No Acute Distress HEENT/AIRWAY: MP 2 Lungs: Clear to Auscultation, Normal Air Movement Heart: No Murmurs/Rubs/Gallops, Other (irregularly irregular. HR 100-130) Meds/Labs/Diagnostics Admission Meds Current Medications Polyethylene Glycol/ Electrolytes (Colyte) 2,000 ml ONCE ONCE PO Last administered on 08/23/16t 05:53; Start 08/23/16 at 06:00; Stop 08/23/16 at 06:01; Status DC Labs Test 08/22/16 05:15 08/23/16 03:40 Prothrombin Time 10.8sec (8.1-12.5) Prothromb Time International Ratio 1.01ratio Activated Partial Thromboplast Time 25.3sec (22.8-33.0) Hemoglobin A1c 6.0% (4.8-5.6) White Blood Count 7.0th/mm3 (3.8-10.1) Red Blood Count 3.41mil/mm3 (3.90-5.20) Hemoglobin 8.5g/dL (12.0-15.6) Hematocrit 27.0% (35.0-46.0) Mean Corpuscular Volume 79.2fL (81-100) Mean Corpuscular Hemoglobin 24.9pg (27.0-35.0) Mean Corpuscular Hemoglobin Concent 31.5% (32.0-37.0) Red Cell Distribution Width 16.6% (12.3-15.4) Platelet Count 192bil/L (150-400) Neutrophils (%) (Auto) 73.1% (40-74) Lymphocytes (%) (Auto) 13.3% (14-46) Monocytes (%) (Auto) 10.9% (4-12) Eosinophils (%) (Auto) 2.1% (0-5) Basophils (%) (Auto) 0.3% (0-3) Sodium Level 138mEq/L (134-144) Potassium Level 4.1mEq/L (3.5-5.2) Chloride Level 104mEq/L (97-108) Carbon Dioxide Level 19mmol/L (18-29) Blood Urea Nitrogen 17mg/dL (8-27) Creatinine 0.79mg/dL (0.57-1.00) Estimat Glomerular Filtration Rate 101mL/min (>59) Glucose Level 94mg/dL (60-99) Calcium Level 8.5mg/dL (8.5-10.1) Total Bilirubin 0.6mg/dL (0.0-1.2) Aspartate Amino Transf (AST/SGOT) 15U/L (0-50) Alanine Aminotransferase (ALT/SGPT) 11U/L (0-32) Alkaline Phosphatase 79U/L (25-165) Total Protein 5.3g/dL (6.4-8.4) Albumin 3.2g/dL (3.4-5.0) Plan Impression Patient chart reviewed, patient interviewed and anesthestic plan with risks, benefits, and alternatives discussed, and informed consent obtained. NPO Status: > 8hrs ASA Physical Status: ASA3 Severe Disease Anesthetic Plan: GA Bene/Risks/Altern/Consents: Yes HP Complete Prior to Induction: Yes Azam James MD Aug 23, 2016 21:23
--- NOTE | 2016-08-23 22:33 | PCM.ANEP1 ---
Post Anesthesia Phase 1 PACU Phase 1 Assessment Date of Service: Aug 22, 2016 Vital Signs Vital Signs Date Time Temp Pulse Resp B/P Pulse Ox O2 Delivery O2 Flow Rate FiO2 08/23/16 19:50 CPAP/BIPAP 08/23/16 19:36 37.0 118 22 149/75 96 08/23/16 16:20 36.8 100 14 145/82 100 Room Air Anesthetic Administered: GA Level of Alertness: Awake, talking VILLAFANA's with Equal Strength: Yes Pain: No Nausea or Vomiting: No Oxygen Delivery: Nasal Cannula Lungs: Clear to Auscultation, Normal Air Movement Dermatome Level: Full Sensation Summary VSS, BP: 138/71 HR: 110 SpO2: 10% Patient tolerated procedure well. Azam James MD Aug 23, 2016 22:33
--- NOTE | 2016-08-23 22:38 | PCM.ANEP2 ---
Post Anesthesia Evaluation ASA/CMS Post Anesthesia VS in Patient's Normal Range?: Yes Resp Stable; Airway Patent?: Yes CV Function & Hydration Stable: Yes Mental Status Recovered?: Yes Pain control Satisfactory?: Yes N/V Control Satisfactory?: Yes Azam James MD Aug 23, 2016 22:38
--- NOTE | 2016-08-23 23:00 | NUR ---
Back on unit Pt back on unit from colonoscopy. Report taken from John CUELLO. Pt is alert and orientated. Given water at request. No concerns reported.
[2016-08-24 00:10] VITALS: BP 147/104; PULSE 132; RESP 20; O2SAT 97
--- NOTE | 2016-08-24 01:01 | ENDO ---
[address] [address] ENDOSCOPY PROCEDURE PATIENT: KYLE RODRIGUEZ : 1935 MR#: [id number] ADMIT: 08/22/2016 JOB ID: [id number] DATE OF PROCEDURE: 08/23/2016 PRIMARY PROVIDER: Claudia Bowen PA-C. PROCEDURE: Colonoscopy with hot snare polypectomy and argon plasma coagulation ablation for hemostasis. INDICATIONS: This is a 80-year-old female with hospital admission for melena and anemia requiring blood transfusion. EGD did not explain her symptoms. Colonoscopy is therefore pursued. EQUIPMENT: [employer]-AMT80AL. SEDATION: Monitored anesthesia as provided Dr. Azam James MD. COMPLICATIONS: None identified. BOWEL PREPARATION: Fair, adequate exam. PROCEDURE INFORMATION: After the risks and benefits were explained, written and verbal informed consent was obtained. The patient was brought into the endoscopy suite and placed into the left lateral decubitus position. Sedation was achieved as above. A digital rectal examination accomplished. Mild internal hemorrhoids were noted. The scope was introduced into the rectum and advanced under direct visualization to the cecum as identified by the appendiceal orifice and ileocecal valve. The scope was slowly withdrawn to carefully examine the mucosa for any defects or lesions. We carefully irrigated and suctioned up all of the blood that we could on the way back. I did not identify the source of bleeding. We therefore advanced once again all the way to cecum and this time identified the bleeding focus as a very small active AVM on the ileocecal valve. We treated this with APC as below. The scope was then withdrawn a second time slowly, evaluating the mucosa for defects or lesions. Ultimately, the colon was decompressed, the scope removed from the patient who tolerated the procedure well. FINDINGS: When I was in the cecum the first time I did not identify any polypoid structure at the level of the appendiceal orifice. Photograph was taken. The second time we were there, there was; however, an approximately 5-6 mm estimated polyp well in the appendiceal orifice and we elected to leave this for the time being. I had already taken off a small polyp with hot snare in the cecum that was relatively easy to address. There was a third polyp adjacent to the ileocecal valve, it was perhaps 5 mm. We left this in situ and focused our energies on the bleed. There was an approximately 6-7 mm polyp in the rectum removed with hot snare. The patient had scattered diverticula throughout the left colon. None of these appeared to be the source of bleeding. No mass lesion was apparent. No signs of colitis. We were able to navigate the tip of the scope into the terminal ileum and this appeared to have a normal dong bile color to it without any evidence of blood. When we were in the colon, there was a moderate amount of red-stained prep and stool debris and some clot matter that was suctioned up the first time around. When we arrived in the cecum the second time it became much easier to then spot the bleeding focus. We used a circumferential APC probe using right colon settings for ablation and this created prompt hemostasis. ENDOSCOPIC DIAGNOSES: 1. 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 2. Colon polyps (some left in situ.) 3. Diverticulosis. 4. Hemorrhoids. RECOMMENDATIONS: 1. The patient can advance diet as tolerated. 2. Recheck CBC in the morning and transfuse further packed RBCs as needed. 3. As long as there is no evidence of any ongoing clinical hemorrhage, I think the patient could be restarted on her Xarelto, perhaps as early as tomorrow or the next day. 4. I would recommend a repeat full colonoscopy in approximately six months to address these polyps, and particularly the challenging one that appeared to be well down in the appendiceal orifice.
[2016-08-24 03:35] VITALS: BP 160/90; PULSE 112; RESP 16; O2SAT 93
[2016-08-24 03:56] LABS: BASOPHILS % (AUTO) 0.1 % (0-3); MONOCYTES % (AUTO) 11.5 % (4-12); Mean Corpuscular Hemoglobin 25.4 pg (27.0-35.0); Mean Corpuscular Volume 80.1 fL (81-100); NEUTROPHILS % (AUTO) 75.1 % (40-74); Platelet Count 240 bil/L (150-400)
[2016-08-24] MEDS: 0.9% Sodium Chloride 1,000 ML IV SCH (05:51)
[2016-08-24] MEDS: Pantoprazole Inj 80 MG in 0.9% Sodium Chloride 80 ML IV SCH (07:15)
[2016-08-24] MEDS: 0.9% Sodium Chloride 250 ML IV SCH ×2 (08:10→11:20)
[2016-08-24] MEDS: Potassium Chloride 20 mEq SR Tablet PO SCH (08:41)
[2016-08-24] MEDS: Verapamil SR 240 mg ER12 Tablet PO SCH (08:41)
[2016-08-24 09:01] VITALS: BP 165/106; PULSE 131; RESP 20; O2SAT 94
--- NOTE | 2016-08-24 10:50 | NUR ---
Social Work: Discharge Data/Assessment: Pt discussed in am rounds. Pt is medically stable for discharge home. PT recommendation for pt is home with for PT/OT. F2F completed and obtained by . LDR RN met with pt at bedside to discuss discharge planning and assess for unmet needs. Pt agrees with plan to go home with HH. She lives in [place], alone. Pt states her daughter lives nearby and will be driving her home. HH recommendation reviewed with pt. HH CHOICE LIST PROVIDED. Preference is for [facility]. Pt confirms homebound status. Pt denies any other needs. t/c to Jesse Morel with [facility]; left message providing referral. Access provided. Plan: Anticipate pt to discharge home today with [facility] for RN, PT, OT. Pt's daughter to transport. HANNAH Delacruz
[2016-08-24 11:55] VITALS: BP 117/74; PULSE 113; RESP 18; O2SAT 97
--- NOTE | 2016-08-24 14:05 | PCM.DIMED ---
Nakia Brewer DO 08/24/16 1405: Discharge Instructions Date of Service Aug 24, 2016 Dates of Hospitalization Aug 22, 2016 at 02:47 Discharge Diagnosis Discharge Diagnosis 1. Microcytic hypochromic anemia, chronicity unknown, present on admit. Active, hemodynamically stable. 2. Acute versus chronic GI bleed, present on admission. Resolved. 3. Hyponatremia, present on admission. Resolved. 5. Hyperkalemia, present on admission. Resolved. Diet Diabetic Activity Limited until seen by PCP Call your provider Fever or Chills, Shortness of breath, Bleeding, Chest pain, Vomitting, Excessive diarrhea, Weakness (unilateral) Patient Instructions Please follow up with ANGELA Aguilera please in 1-2 weeks after discharge. The appointment will be made for you before he left the hospital. Make sure to discuss with your provider your hemoglobin A1c of 6 which is at prediabetic range. She will assist you in lifestyle modifications and diet improvement to decrease your risk of developing diabetes. Also, per Dr. Fernández, you are recommended to repeat colonoscopy in 6 months. Follow-up Provider: Claudia Bowen PA-C Follow-up with PCP in: 1 week Marty De Souza MD 08/25/16 1709: Discharge Instructions Attending's Statement The patient was seen and examined together with Dr. Brewer on 08/24/2016 and I agree with the history, exam and plan as outlined in the note above. . Nakia Brewer DO Aug 24, 2016 14:05 Marty De Souza MD Aug 25, 2016 17:09
--- NOTE | 2016-08-24 14:40 | PCM.DC.MED ---
Discharge Summary Date of Service Aug 24, 2016 Dates of Hospitalization Date of Hospital Admission Aug 22, 2016 at 02:47 Date of Discharge: Aug 24, 2016 Providers: Admitting Physician: Claudia Simms DO Primary Care Physician: Claudia Bowen PA-C Attending Physician: Claudia Simms DO Diagnosis at Time of Discharge Diagnosis at Time of Discharge 1. Microcytic hypochromic anemia, chronicity unknown, present on admit. Active, hemodynamically stable. 2. Acute versus chronic GI bleed, present on admission. Resolved. 3. Hyponatremia, present on admission. Resolved. 5. Hyperkalemia, present on admission. Resolved. Consultations Gastroenterology, Dr. Fernández Procedures XRay, CTs & MRIs Chest x-ray done at [facility] Lungs/pleura: no focal opacities evident. No pleural effusion. No pneumothorax. Overexpanded. No vascular congestion. Mediastinum: Stable moderate cardiomegaly. No adenopathy. Impression: 1. Moderate cardiomegaly. 2. Chronic lung disease. Read by radiologist Mandy Mac M.D. ECG 12 Lead EKG done at [facility] Rate of 61, rhythm is atrial fibrillation, axis anterior hemiblock, right bundle branch block, rate has decreased from previous EKG on 04/10/2015 otherwise no changes. Other Diagnostics Upper Endoscopy ENDOSCOPIC DIAGNOSES: 1. Diminutive gastric polyps. 2. Small gastric submucosal mass lesion, soft. 3. No sign of any active or recent upper gastrointestinal bleeding. Signed and approved by Dr. Fernández, 08/22/16 Colonoscopy with hot snare polypectomy and argon plasma coagulation ablation for hemostasis ENDOSCOPIC DIAGNOSES: 1. 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 2. Colon polyps (some left in situ.) 3. Diverticulosis. 4. Hemorrhoids. Signed and approved by Dr. Fernández 08/23/16 Brief History Catherine Flores is a 80-year-old female with past history of paroxysmal atrial fibrillation on antiplatelet therapy Xarelto, as well as history of obstructive sleep apnea, congestive heart failure, chronic obstructive pulmonary disease, and gastroesophageal reflux disease who presented to [facility] for worsening generalized weakness, dizziness/lightheadedness, and shortness of breath over the past week. was transferred to [facility] secondary to lack of procedural space. Patient also reports intermittent nausea and dark, tarry stool for the last 3-5 days. She denies any similar symptoms or history of anemia in the past. She also denies chest pain, abdominal pain, vomiting, constipation, diarrhea, heartburn, or fever/chills. She states that her gastroesophageal reflux disease is well controlled with Prilosec 1 tab daily. No frequent nonsteroidal anti-inflammatory drugs use or history of H. pylori infection. Her last colonoscopy was about 2 years ago and it was normal. Patient never has an upper endoscopy before. At [facility], patient was found to be in atrial fibrillation with a critically low hemoglobin and hematocrit of 6.4/20.7. Patient was started on Protonix drip and received a single unit of packed red blood cells. By the time she arrived at medical Hospital, her hemoglobin improved to 7.3 and patient also reported improvement of symptoms. No blood transfusion overnight with 2 units of packed red blood cells were typed and hold. This morning, her hemoglobin dropped to 6.7, so blood transfusion was initiated. Gastroenterology team was consulted by phone for anemia likely secondary to gastrointestinal bleed and endoscopy. Hospital Course Catherine Flores is a pleasant 80-year-old female with history of paroxysmal atrial fibrillation on antiplatelet therapy Xaluba who presented to [facility] from [facility] complaining of one-week history of generalized weakness, dyspnea, dizziness/lightheadedness, and shortness of breath with associated dark tarry stools and critically low hemoglobin and hematocrit. She was admitted tp [facility] for treatment and management of acute blood loss anemia secondary to possible gastrointestinal bleed. She was discharged in a stable condition on hospital day 3. 1. Microcytic hypochromic anemia, chronicity unknown, present on admit. Active, hemodynamically stable. -Status post 3 units of packed red blood cells transfusion, 1 unit at [facility] prior to transfer and 2 units at [facility]. -Improved hemoglobin and hematocrit at 8.7 and 27.91 upon discharge. -Patient received 1 unit of packed red blood cells at [facility] prior to transfer to [facility]. -Patient denied any prior history of blood transfusions. -Continued intravenous protonix drip. 2. Acute versus chronic GI bleed, present on admission. Active, hemodynamically stable. -Gastroenterology consulted and an upper endoscopy (08/22/16) and colonoscopy (08/23) performed by Dr. Fernández. -Upper endoscopy revealed gastric polyp, small gastric submucosal mass lesion, and no sign of any active or recent upper gastrointestinal bleeding. -Colonoscopy revealed bleeding small anterior-venous malformation status post argon plasma coagulation ablation, colon polyps, diverticulosis, hemorrhoids. 3. Hyponatremia, present on admission. Resolved. -Intravenous fluids normal saline maintenance rate 100 mL per hour before/after blood transfusion (monitored for fluid overload as patient had history of CHF) 5. Hyperkalemia, present on admission. Resolved. -Intravenous fluids normal saline maintenance rate 100 mL per hour before/after blood transfusion (monitored for fluid overload as patient had history of CHF) Exam Vital Signs (Last) Date Time Temp Pulse Resp B/P Pulse Ox O2 Delivery O2 Flow Rate FiO2 08/24/16 11:55 37.0 113 18 117/74 97 Room Air 08/23/16 22:28 2 08/22/16 03:15 21 Exam General: Patient is alert and oriented, resting comfortably in bed HEENT: Normocephalic, atraumatic, pale conjunctiva, neck soft, supple, throat mucous membranes pink and moist Lungs: Clear to auscultation bilaterally, all [place], no wheezes, no rhonchi, no crackles Heart: Regular rate, rhythm is irregularly irregular, no murmurs appreciated Abdomen: Obesity, abdomen is soft, nontender, nondistended Genitourinary: Casas catheter draining light-colored suly urine Extremities: 2+ pitting edema bilaterally of the lower extremities with extension to just above the ankle Test 08/22/16 05:15 08/24/16 03:45 Prothrombin Time 10.8sec (8.1-12.5) Prothromb Time International Ratio 1.01ratio Activated Partial Thromboplast Time 25.3sec (22.8-33.0) Hemoglobin A1c 6.0% (4.8-5.6) White Blood Count 7.4th/mm3 (3.8-10.1) Red Blood Count 3.42mil/mm3 (3.90-5.20) Hemoglobin 8.7g/dL (12.0-15.6) Hematocrit 27.4% (35.0-46.0) Mean Corpuscular Volume 80.1fL (81-100) Mean Corpuscular Hemoglobin 25.4pg (27.0-35.0) Mean Corpuscular Hemoglobin Concent 31.8% (32.0-37.0) Red Cell Distribution Width 17.0% (12.3-15.4) Platelet Count 240bil/L (150-400) Neutrophils (%) (Auto) 75.1% (40-74) Lymphocytes (%) (Auto) 11.2% (14-46) Monocytes (%) (Auto) 11.5% (4-12) Eosinophils (%) (Auto) 2.0% (0-5) Basophils (%) (Auto) 0.1% (0-3) Sodium Level 139mEq/L (134-144) Potassium Level 3.8mEq/L (3.5-5.2) Chloride Level 103mEq/L (97-108) Carbon Dioxide Level 22mmol/L (18-29) Blood Urea Nitrogen 11mg/dL (8-27) Creatinine 0.83mg/dL (0.57-1.00) Estimat Glomerular Filtration Rate 95mL/min (>59) Glucose Level 104mg/dL (60-99) Calcium Level 8.8mg/dL (8.5-10.1) Total Bilirubin 0.5mg/dL (0.0-1.2) Aspartate Amino Transf (AST/SGOT) 13U/L (0-50) Alanine Aminotransferase (ALT/SGPT) 11U/L (0-32) Alkaline Phosphatase 81U/L (25-165) Total Protein 5.4g/dL (6.4-8.4) Albumin 3.2g/dL (3.4-5.0) Discharge Medications Discharge Medications Bupropion ER (Bupropion ER) 150 Mg Tablet.er 150 MG PO DAILY (Reported) Cholecalciferol (Vitamin D3) (Vitamin D3) 1,000 Unit Tab.chew 1,000 UNIT PO DAILY (Reported) Colestipol HCl (Colestid) 1 Gm Tablet 2 TAB PO DAILY (Reported) Fluticasone/Vilanterol (Breo Ellipta 200-25 Mcg INH) 200 Mcg-25 Mcg/Dose Blst.w.dev 1 EACH IH DAILY (Reported) Furosemide (Furosemide) 40 Mg Tablet 80 MG PO DAILY (Reported) Magnesium Oxide (Mag-Oxide) 400 Mg Tablet 400 MG PO BID (Reported) Metoprolol Tartrate (Metoprolol Tartrate) 50 Mg Tablet 50 MG PO BID (Reported) Omeprazole (Omeprazole) 20 Mg Capsule.dr 20 MG PO DAILY (Reported) Potassium Chloride ER (Klor-Con 10) 10 Meq Tablet 20 MEQ PO MORNING (Reported) Potassium Chloride ER (Klor-Con 10) 10 Meq Tablet 10 MEQ PO QPM (Reported) Rivaroxaban (Xarelto) 20 Mg Tablet 20 MG PO DAILYWD (Reported) Sertraline HCl (Sertraline) 50 Mg Tablet 50 MG PO DAILY (Reported) Telmisartan (Micardis) 80 Mg Tablet 40 MG PO DAILY (Reported) Umeclidinium Platter (Incruse Ellipta) 62.5 Mcg/Actuation Blst.w.dev 62.5 MCG IH DAILY (Reported) Verapamil ER (Verapamil ER) 240 Mg Cap24h.pel 240 MG PO DAILY (Reported) Followup Plan Discharge Diet: Diabetic Discharge Activity: Limited until seen by PCP Patient Instructions Please follow up with ANGELA Aguilera in 1-2 weeks after discharge. The appointment will be made for you before he left the hospital. Make sure to discuss with your provider your hemoglobin A1c of 6 which is at prediabetic range. She will assist you in lifestyle modifications and diet improvement to decrease your risk of developing diabetes. Follow-up Provider: Claudia Bowen PA-C Follow-up with PCP in: 1 week Time spent Greater than 30 minutes was spent in preparation of discharge with greater than 50% of that time dedicated to patient counseling and coordination of care. . Attending Statement The patient was seen and examined together with Dr. Brewer on 08/24/2016 and I agree with the history, exam and plan as outlined in the note above. . copies to: Claudia Bowen PA-C, Oksana S DO Aug 24, 2016 14:13 Marty De Souza MD Aug 25, 2016 17:11
--- NOTE | 2016-08-24 15:53 | NUR ---
Discharge Pt left with daughter at 1530 via private car. No changes in medications were made and all discharge instructions were gone over and understood. Pt's home medications were retrieved from pharmacy and pt took them home along with all other belongings. IV removed. No tele. Vitals stable.
--- NOTE | 2016-08-25 11:15 | PATH ---
SURGICAL PATHOLOGY Attending Physician:Royer Ramos CASE STATUS: Signed Out PATIENT NAME: KYLE RODRIGUEZ PID: [id number] : 1935 DATE COLLECTED:08/23/2016 00:00 SPECIMEN: 1: Colon, Biopsy 2: Rectum, Biopsy CLINICAL HISTORY: 1). CECUM POLYP 2). RECTUM POLYP FINAL DIAGNOSIS: 1. Cecum Polyp: Sessile serrated adenoma. 2. Rectum Polyp: Hyperplastic polyp. ICD10 D12.0 GROSS DESCRIPTION: The specimen is received in two formalin filled containers labeled with the patient's name. 1). The specimen is sublabeled "cecum polyp" and consists of a 0.5 x 0.4 x 0.3 CM portion of tissue which is entirely submitted in cassette 1A. 2). The specimen is sublabeled "rectum polyp" and consists of a 0.4 x 0.4 x 0.4 CM portion of tissue which is entirely submitted in cassette 2A. 08/24/2016 [facility] ICD-9 CODES: CPT CODES: 1: 05299 2: 03979 Electronically Signed Out Anish Campbell MD [facility] Pathology [facility] [address], [place] [address] Technical component performed at [facility], [facility] [address], [place], [address]
--- NOTE | 2016-08-29 16:29 | PATH ---
SURGICAL PATHOLOGY Attending Physician:Royer Ramos CASE STATUS: Signed Out * Amended * PATIENT NAME: CATHERINE RODRIGUEZ PID: [id number] : 1935 DATE COLLECTED:08/22/2016 00:00 SPECIMEN: Gastric, Biopsy CLINICAL HISTORY: GASTRIC NODULE 1). GASTRIC NODULE BIOPSY FINAL DIAGNOSIS: Gastric Biopsy: Superficial portion of gastric fundic mucosa with patchy, mild chronic inflammation and dilated fundic glands, consistent with benign fundic gland polyp. Negative for H. pylori organisms by immunohistochemistry studies. ICD10 K29.7 This case was reviewed and interpreted by Dr. Catherine Adhikari. The final diagnosis is unchanged. This amendment is issued in order for the report to cross the interface and be available in the hospital electronic medical record. GROSS DESCRIPTION: The specimen is received in one formalin filled container labeled with the patient's name, sublabeled "gastric nodule" and consists of a 0.3 x 0.2 x 0.2 CM soares-nuñez portion of tissue. The specimen is entirely submitted in one cassette. 08/23/2016 [facility] MICRO DESCRIPTION: IMMUNOHISTOCHEMISTRY: Block 1A: H. pylori: ICD-9 CODES: CPT CODES: 1: 37339, 67133 PROCEDURE/ADDENDA: Addendum SPI Addendum Diagnosis Immunohistochemistry results H. pylori: Negative Addendum Comment Addendum issued to report H. Pylori Immunohistochemistry table. Electronically Signed Out Catherine Adhikari MD AMENDMENT(S): Amended: 08/29/2016 by Barbi Castañeda Reason:Miscellaneous The final diagnosis is unchanged. This amendment is issued in order for the report to cross the interface and be available in the hospital electronic medical record. Previous Signout Date: 08/25/2016 Electronically Signed Out Nelsy Alarcon MD [facility] Pathology [facility] [address], [place] [address] Technical component performed at [facility], [facility] [address], [place], [address]
== END 2016-08-24 15:20 | disposition home health service (06) | DRG 378 ==
LOC: PCC 02:47
PROVIDERS: ADMIT Internal Medicine; ATTEND Internal Medicine
PROC: 0DB68ZX Excision of Stomach, Via Natural or Artificial Opening Endoscopic, Diagnostic (ICD-10-PCS; 2016-08-23)
PROC: 0DBP8ZX Excision of Rectum, Via Natural or Artificial Opening Endoscopic, Diagnostic (ICD-10-PCS; 2016-08-23)
PROC: 0D5H8ZZ Destruction of Cecum, Via Natural or Artificial Opening Endoscopic (ICD-10-PCS; principal; 2016-08-23 16:45)
PROC: 0DJ08ZZ Inspection of Upper Intestinal Tract, Via Natural or Artificial Opening Endoscopic (ICD-10-PCS; 2016-08-23 16:45)
DX: K55.21 Angiodysplasia of colon with hemorrhage (principal); D62 Acute posthemorrhagic anemia; I48.0 Paroxysmal atrial fibrillation; G47.33 Obstructive sleep apnea (adult) (pediatric); K21.9 Gastro-esophageal reflux disease without esophagitis; K31.7 Polyp of stomach and duodenum; D12.0 Benign neoplasm of cecum; K62.1 Rectal polyp; E87.5 Hyperkalemia; Z79.01 Long term (current) use of anticoagulants; Z87.891 Personal history of nicotine dependence